=== PATIENT | male | born 1990 | race Asian ===

== ENCOUNTER 2022-05-17 20:09 | Emergency (ER) | payer SELFPAY ==
[2022-05-17] MEDS ORDERED: PERCOCET 5-3251 EACH PO (23:16)
[2022-05-17] MEDS ORDERED: NAPROXEN500 MG PO (23:17)
[2022-05-17] MEDS ORDERED: ONDANSETRON ODT4 MG PO (23:17)
== END 2022-05-17 23:29 | disposition home or self-care (01) ==
LOC: FER 20:09
DX: S52.572A Other intraarticular fracture of lower end of left radius, initial encounter for closed fracture (principal); S52.612A Displaced fracture of left ulna styloid process, initial encounter for closed fracture; W11.XXXA Fall on and from ladder, initial encounter; Y92.89 Other specified places as the place of occurrence of the external cause; Y99.0 Civilian activity done for income or pay
CPT/HCPCS: 73100; 73110; 96372; 96374; 96375; J1170; J2250; J2405; J3010